=== PATIENT | female | born 1985 | race Caucasian/White ===

== ENCOUNTER → 2020-01-31 14:57 | Outpatient (BNVA) | payer OTHER, SELFPAY | PROVIDERS: Family Provider Registered Nurse; PCP Registered Nurse; Visit Provider Registered Nurse | DX: E28.2 Polycystic ovarian syndrome (principal); R19.7 Diarrhea, unspecified; R30.0 Dysuria | CPT/HCPCS: 81000 ==

== ENCOUNTER → 2020-03-03 15:00 | Outpatient (BNVA) | payer OTHER, SELFPAY | PROVIDERS: Family Provider Registered Nurse; PCP Registered Nurse; Visit Provider Registered Nurse | DX: R11.2 Nausea with vomiting, unspecified (principal); I10 Essential (primary) hypertension; R82.998 Other abnormal findings in urine | CPT/HCPCS: 80053; 80307; 81000; 85025 ==

== ENCOUNTER → 2021-03-16 10:57 | Outpatient (BNVA) | payer SELFPAY | PROVIDERS: Family Provider Registered Nurse; PCP Registered Nurse; Visit Provider Registered Nurse | DX: I10 Essential (primary) hypertension (principal); E78.5 Hyperlipidemia, unspecified; F41.8 Other specified anxiety disorders; F32.9 Major depressive disorder, single episode, unspecified; E66.01 Morbid (severe) obesity due to excess calories; Z68.44 Body mass index [BMI] 60.0-69.9, adult | CPT/HCPCS: 80053; 80061; 84443; 85025 ==

== ENCOUNTER → 2021-06-09 12:54 | Outpatient (BNVA) | payer OTHER, SELFPAY | PROVIDERS: Family Provider Registered Nurse; PCP Registered Nurse; Visit Provider Nurse Practitioner Family | DX: Z20.822 Contact with and (suspected) exposure to COVID-19 (principal) | CPT/HCPCS: 87635 ==

== ENCOUNTER → 2022-03-28 09:45 | Outpatient (BNVA) | payer MEDICAID, SELFPAY | PROVIDERS: Family Provider Registered Nurse; PCP Registered Nurse; Visit Provider Registered Nurse | DX: I10 Essential (primary) hypertension (principal); F41.9 Anxiety disorder, unspecified; F41.8 Other specified anxiety disorders | CPT/HCPCS: 80053; 85025 ==

== ENCOUNTER → 2022-03-29 14:07 | Outpatient (BNVA) | payer MEDICAID, SELFPAY | PROVIDERS: Family Provider Registered Nurse; PCP Registered Nurse; Visit Provider Registered Nurse | DX: I10 Essential (primary) hypertension (principal); F41.9 Anxiety disorder, unspecified; F41.8 Other specified anxiety disorders; R73.09 Other abnormal glucose | CPT/HCPCS: 83036 ==

== ENCOUNTER → 2022-11-18 10:32 | Outpatient (BNVA) | payer MEDICAID, SELFPAY | PROVIDERS: Family Provider Registered Nurse; PCP Registered Nurse; Visit Provider Nurse Practitioner Family | DX: I10 Essential (primary) hypertension (principal); E28.2 Polycystic ovarian syndrome; F41.8 Other specified anxiety disorders; F32.9 Major depressive disorder, single episode, unspecified; E66.01 Morbid (severe) obesity due to excess calories; Z68.44 Body mass index [BMI] 60.0-69.9, adult | CPT/HCPCS: 80053; 80061; 84443; 85025 ==

== ENCOUNTER → 2023-03-01 16:20 | Outpatient (BNVA) | payer MEDICAID, SELFPAY | PROVIDERS: Family Provider Registered Nurse; PCP Nurse Practitioner Family; Visit Provider Nurse Practitioner Women's Health | DX: N93.9 Abnormal uterine and vaginal bleeding, unspecified (principal); Z12.4 Encounter for screening for malignant neoplasm of cervix | CPT/HCPCS: 84443; 84702; 85025; 87624 ==

== ENCOUNTER → 2023-03-02 07:45 | Outpatient (BNVA) | payer MEDICAID, SELFPAY | PROVIDERS: Family Provider Registered Nurse; PCP Nurse Practitioner Family; Visit Provider Nurse Practitioner Women's Health | DX: E28.2 Polycystic ovarian syndrome (principal); N93.9 Abnormal uterine and vaginal bleeding, unspecified; N85.4 Malposition of uterus | CPT/HCPCS: 76830 ==

== ENCOUNTER → 2023-03-16 09:40 | Outpatient (BNVA) | payer MEDICAID, SELFPAY | PROVIDERS: Family Provider Registered Nurse; PCP Nurse Practitioner Family; Visit Provider Nurse Practitioner Women's Health | DX: N93.9 Abnormal uterine and vaginal bleeding, unspecified (principal); N89.8 Other specified noninflammatory disorders of vagina; R87.619 Unspecified abnormal cytological findings in specimens from cervix uteri; E28.2 Polycystic ovarian syndrome | CPT/HCPCS: 81025; 87491; 87591; 87661; 88305 ==

== ENCOUNTER 2023-05-18 11:16 | Day surgery (SDC) | payer OTHER, SELFPAY ==
[2023-05-17 16:30] VITALS: BMI 58.1
--- NOTE | 2023-05-17 21:54 | P.HP_ITS ---
Same Day Surgery H&P Indication for Procedure/HPI DATE OF PROCEDURE: May 18, 2023 CHIEF COMPLAINT/INDICATIONFOR SURGICAL PROCEDURE: Long history of abnormal uterine bleeding Abnormal endometrium on ultrasound Pap showed atypical glandular cells PREOP DIAGNOSIS: abnormal uterine bleeding; Abnormal endometrium on ultrasound; abnormal pap PLANNED PROCEDURE: Operation Date: 05/18/23 13:30 Proposed Procedures p Hysteroscopy, endometrial sampling, possible endometrial polypectomy with Myosure 78411,N93.9(Not Applicable) - Bear Webster MD s Poylpectomy(Not Applicable) - Bear Webster MD 37 y.o.? G0 Periods always irregular Usually no bleeding for 1-2 months Then bleeding for one week, very heavy with large clots Then repeats cycle again Pap done March 01, 2023 showed atypical glandular cells Pelvic sono March 02, 2023 showed heterogeneous, lobulated endometrium Now scheduled for hysteroscopy, endometrial sampling, possible endometrial polypectomy Medications/Allergies* Allergies/Adverse Reactions Allergy/AdvReac Type Severity Reaction Status Date / Time azithromycin Allergy ADR-Nausea Verified 05/05/23 13:40 Pertinent History/Comorbid Conditions* Medical History (Updated 05/07/23 @ 19:04 by HARMONY Julio) Family hx of ALS (amyotrophic lateral sclerosis) Migraine without aura and without status migrainosus, not intractable No pertinent past medical history neghx: dm,thyroid,dvt/pe PCP: Marisel Ayon at [facility] Surgical History (Updated 11/01/19 @ 12:26 by Flor Kendrick RN) Hx of cholecystectomy Family History (Updated 11/01/19 @ 12:29 by Flor Kendrick RN) Heart disease Mother Patient denies medical problems Unknown Denies family history of: Diabetes, Thyroid problems, Cancer of the colon, breast, uterus, or ovaries. Cancer Grandmother great grandmother, type unknown Hypertension Mother Stroke Grandfather maternal Pertinent Exam Findings alert, oriented x 3, clear to auscultation bilaterally and regular rate & rhythm Recommendations Surgery/Procedure today Other Plans: hysteroscopy, endometrial sampling, possible endometrial polypectomy May 18, 2023 Coding Level of Care Code Acute Code for Chg Fwd Diagnoses Time Spent (min) 20
[2023-05-18] VITALS (11 sets, daily range): BP systolic 146–187; BP diastolic 89–109; PULSE 73–98; RESP 14–18; TEMP 36.3–36.8; O2SAT 93–98
[2023-05-18] MEDS: sodium chloride 0.9% 1,000 ML 30 ML IV (11:50)
--- NOTE | 2023-05-18 12:06 | P.ANESASSM_ITS ---
Pre-Anesthetic Assessment Height/Weight: Height 1.65 m Weight 158.304 kg Temp Pulse Resp BP Pulse Ox O2 Del Method 98.1 F 85 18 180/109 97 Room Air 05/18/23 11:34 05/18/23 11:34 05/18/23 11:34 05/18/23 11:34 05/18/23 11:34 05/18/23 11:40 Preop Diagnosis: abnormal uterine bleeding Operation Date: 05/18/23 12:30 Proposed Procedures p Hysteroscopy, endometrial sampling, possible endometrial polypectomy with Myosure 24646,N93.9/cervical conization 76134(Not Applicable) - Bear Webster MD s Poylpectomy(Not Applicable) - Bear Webster MD s Cervical Conization(Not Applicable) - Bear Webster MD Familial anesthetic complications: none Was Beta Taras taken within 24 hours: N/A Was Clonidine taken within 24 hours: N/A Last intake: Intake Last Liquid Date 05/17/23 Last Liquid Time 23:50 Last Solid Date 05/17/23 Last Solid Time 23:00 Social No alcohol and No tobacco Exam alert, oriented x 3, clear to auscultation bilaterally and regular rate & rhythm Airway Submandibular: within normal limits Cervical ROM: within normal limits Mallampati: Class III Dentition: full CV/HEM Hypertension Metabolic Diabetes Mellitus and Morbid Obesity PCOS Neuropsych Anxiety and Depression Anesthetic Plan ASA status: 3 Anesthesia: General Medications/Allergies Home Medications Medication Instructions Recorded Confirmed Last Taken Type norethindrone 1 mg-ethinyl 1 tab PO DAILY #90 tabs 03/21/23 05/17/23 05/17/23 Rx estradiol 35 mcg tablet (Pirmella) buspirone 10 mg tablet 10 mg PO TID 30 days #270 tabs 05/05/23 05/17/23 05/17/23 Rx lisinopril 20 mg tablet 20 mg PO DAILY #90 tabs 05/05/23 05/17/23 05/17/23 Rx metformin 500 mg tablet,extended 1,000 mg PO DAILY #180 tabs 05/05/23 05/17/23 05/17/23 Rx release 24hr sertraline 50 mg tablet 50 mg PO DAILY 30 days #42 tabs 05/05/23 05/17/23 05/17/23 Rx Allergies Allergy/AdvReac Type Severity Reaction Status Date / Time azithromycin Allergy ADR-Nausea Verified 05/05/23 13:40 Current Medications Generic Name Dose Route Start Last Admin Trade Name Bonifacioq PRN Reason Stop Dose Admin Sodium Chloride 1,000 mls @ 30 mls/hr 05/18/23 11:30 05/18/23 11:50 Sodium Chloride 0.9% IV 05/19/23 11:29 30 mls/hr .Q24H ROSALIO Administration PFSH Anesthesia Medical History (Updated 05/07/23 @ 19:04 by HARMONY Julio) Family hx of ALS (amyotrophic lateral sclerosis) Migraine without aura and without status migrainosus, not intractable No pertinent past medical history neghx: dm,thyroid,dvt/pe PCP: Marisel Ayon at [facility] Surgical History Hx of cholecystectomy Family History Grandmother Cancer great grandmother, type unknown Mother Hypertension Heart disease Grandfather Stroke maternal Unknown Patient denies medical problems Denies family history of: Diabetes, Thyroid problems, Cancer of the c olon, breast, uterus, or ovaries. Female Reproductive History Date of last menstrual period: 05/17/23 Data Anesthesia Cardiac Studies: No Data to Display
--- NOTE | 2023-05-18 12:17 | W.PM.OPSUD ---
Surgery/Procedure H&P Update DATE OF PROCEDURE: May 18, 2023 DATE H&P PERFORMED: 05/17/23 H&P UPDATE INFORMATION: I have reviewed H&P completed within last 30 days, I have examined patient prior to procedure and Changes to prior documentation as noted here CHANGES TO PREVIOUS DOCUMENTATION: plan also conization of cervix due to abnormal pap PREOP DIAGNOSIS: abnormal uterine bleeding PLANNED PROCEDURE: Operation Date: 05/18/23 12:30 Proposed Procedures p Hysteroscopy, endometrial sampling, possible endometrial polypectomy with Myosure 27544,N93.9/cervical conization 13500(Not Applicable) - Bear Webster MD s Poylpectomy(Not Applicable) - Bear Webster MD s Cervical Conization(Not Applicable) - Bear Webster MD
[2023-05-18] MEDS: vasopressin 20 unit/mL INJ INJECTION (13:09)
--- NOTE | 2023-05-18 14:25 | ANE.PACU2 ---
Inpatient post-anesthesia follow up: Airway intact: Yes Vital signs: Temperature 98.2 F Pulse Rate 76 Respiratory Rate 17 Blood Pressure 162/92 Pulse Oximetry 95 Oxygen Delivery Me thod Room Air Oxygen Flow Rate 6 Fraction of Inspir ed Oxygen Hydration adequate: Yes Nausea and vomiting: No Pain level: 2 Mental status: Baseline
--- NOTE | 2023-05-18 20:00 | PM.OP ---
Operative Report Date of procedure: May 18, 2023 Pre-op diagnosis: Preop Diagnosis abnormal uterine bleeding; abnormal pap - atypical glandular cells Post-op diagnosis: same Post-op findings: normal endometrial cavity No polyps / fibroids Minimal endometrial tissue Cervical ectopion Procedure done: hysteroscopy Curettage of uterus Conization of cervix Specimens removed/disposition: endometrial tissue cervical cone Surgeon: Bear Webster MD Anesthesia: General Estimated blood loss (mL): 5 Complications: none Condition: stable Disposition: PACU Brief History: 37 y.o. with abnormal uterine bleeding and pap c/w atypical glandular cells Procedure: Informed consent signed. Patient taken to the operating room. Anesthesia induced. Patient was placed in dorsolithotomy position, prepped and draped for hysteroscopy. A bivalve speculum was placed in the vagina. The anterior lip of the cervix was grasped with a sharp-toothed tenaculum. The cervix was serially dilated with Hegar dilators. . A hysteroscope was placed into the endometrial cavity. The endometrial cavity was seen to be normal. There were no polyps or fibroids. There was minimal endometrial tissue. The hysteroscope was then removed. Endometrial curettage was done with a sharp curette. Endometrial tissue was sent to pathology. The hysteroscope was re-introduced and the endometrial cavity was seen to be intact. The cervix was then infiltrated at the cervicovaginal junction with 20 U of vasopressin to decrease bleeding. The cold-knife conization was then performed with a scalpel, to a depth of approximately 5-7 mm. Small amount of bleeding was seen from the posterior margin of excision. A single suture of O-chromic was used. Excellent hemostasis was then noted. All instruments were then removed. The patient was placed supine, awakened, and taken to the recovery room. The sharp-toothed tenaculum was removed. There was no bleeding from the endometrial cavity or cervix. The patient was then placed supine and awakened and taken to the PACU. Postop condition: stable EBL: none Sponge and instruments counts were normal x 2 Complications: none
== END 2023-05-18 15:05 | disposition home or self-care (01) ==
PROVIDERS: PCP Nurse Practitioner Family; Visit Provider Obstetrics & Gynecology
PROC: 0UDB8ZZ Extraction of Endometrium, Via Natural or Artificial Opening Endoscopic (ICD-10-PCS; CPT 58558; principal; 2023-05-18 12:20)
PROC: 0UBC7ZZ Excision of Cervix, Via Natural or Artificial Opening (ICD-10-PCS; CPT 57520; 2023-05-18 12:20)
DX: N93.9 Abnormal uterine and vaginal bleeding, unspecified (principal); R87.619 Unspecified abnormal cytological findings in specimens from cervix uteri; I10 Essential (primary) hypertension; E11.9 Type 2 diabetes mellitus without complications; E66.01 Morbid (severe) obesity due to excess calories; Z68.43 Body mass index [BMI] 50.0-59.9, adult; E28.2 Polycystic ovarian syndrome; Z79.84 Long term (current) use of oral hypoglycemic drugs
CPT/HCPCS: 58558; 88305; 88307; J3490; J7030

== ENCOUNTER → 2023-05-30 14:39 | Day surgery (SDC) | payer OTHER, SELFPAY | LOC: OR 14:42 | PROVIDERS: PCP Nurse Practitioner Family; Visit Provider Obstetrics & Gynecology | DX: N93.9 Abnormal uterine and vaginal bleeding, unspecified (principal) | CPT/HCPCS: J2250; J2704; J3010 ==

== ENCOUNTER → 2023-11-16 09:16 | Outpatient (BNVA) | payer OTHER, SELFPAY | PROVIDERS: PCP Registered Nurse; Visit Provider Registered Nurse | DX: I10 Essential (primary) hypertension (principal); E28.2 Polycystic ovarian syndrome; F41.8 Other specified anxiety disorders; E66.01 Morbid (severe) obesity due to excess calories; Z68.44 Body mass index [BMI] 60.0-69.9, adult | CPT/HCPCS: 80053; 80061; 85025 ==

== ENCOUNTER → 2023-11-17 14:47 | Outpatient (BNVA) | payer OTHER, SELFPAY | PROVIDERS: PCP Registered Nurse; Visit Provider Registered Nurse | DX: R73.9 Hyperglycemia, unspecified | CPT/HCPCS: 83036 ==

== ENCOUNTER → 2025-01-14 10:24 | Outpatient (BNVA) | payer OTHER, SELFPAY | PROVIDERS: PCP Registered Nurse; Visit Provider Registered Nurse | DX: I10 Essential (primary) hypertension (principal) | CPT/HCPCS: 80053; 80061; 83036; 85025 ==

== ENCOUNTER → 2025-06-20 12:26 | Outpatient (BNVA) | payer OTHER, SELFPAY | PROVIDERS: PCP Registered Nurse; Visit Provider Nurse Practitioner | DX: R50.9 Fever, unspecified (principal) | CPT/HCPCS: 87426 ==